=== PATIENT | male | born 1945 | race Caucasian/White ===

== ENCOUNTER → 2018-11-08 07:10 | Outpatient (CLI) | payer SELFPAY ==
--- NOTE | 2018-11-08 06:22 | PET_ITS ---
EXAMINATION: FDG PET CT INDICATIONS: A 73-year-old male with reported history of colorectal carcinoma presenting for restaging examination and evaluation of pulmonary nodularity. COMPARISON EXAMINATION: None available. INDEX LESION SIZE SUV INTERPRETATION Right lower posterior hemithorax pulmonary parenchyma, right lower lobe 18.8 mm (frame 180) 4.1 Fulfills quantitative criteria for viable neoplasm Left upper pelvic mesentery (n = 3) 7.3 mm largest (frame 115) 4.3 (max) Fulfills quantitative criteria for viable neoplasm NON-INDEX LESION SIZE SUV INTERPRETATION Aorticopulmonary window 2.3 Quantitative criteria for viable neoplasm are not fulfilled Left adrenal gland 1.8 Quantitative criteria for viable neoplasm are not fulfilled TECHNIQUE: Following the intravenous administration of 16.4 mCi of F-18 deoxyglucose via the right forearm, multiplanar image acquisitions of the neck, chest, abdomen and pelvis to level of mid thigh, obtained at one hour post radiopharmaceutical administration contemporaneously interpreted with the current CT of the neck, chest, abdomen and pelvis to level of mid thigh, dated 11/08/18 via coregistration reveal: SERUM GLUCOSE LEVEL: 96 mg/dl. HEIGHT: 65 inches. WEIGHT: 136 lbs. FINDINGS: 1. A nodular focus of enhanced glucose metabolism is noted in the right lower posterolateral hemithorax pulmonary parenchyma, right lower lobe generating a calculated maximum standard uptake value of 4.1. The maximal axial diameter of the corresponding parenchymal density on review of CT of the thorax dated 11/08/18 is 18.8 mm (AP). 2. Several distinct nodular foci of increased glucose distribution are observed in the left upper pelvic mesentery corresponding to apparent soft tissue densities, presumed lymph nodes on review of CT of the pelvis dated 11/08/18. The calculated maximum standard uptake value is 4.3. The most conspicuous metabolic, morphologic abnormality on review of CT of the pelvis dated 11/08/18 is 7.3 mm. 3. Mild increased FDG concentration is noted in the region of the aorticopulmonary window rendering a calculated maximum standard uptake value of 2.3. Quantitative criteria for centrally located thoracic-viable neoplasm are not fulfilled. 4. An increase in fluorine-labeled glucose uptake is noted in the left upper abdomen, which appears contiguous to the left adrenal gland rendering a calculated maximum standard uptake value of 1.8. 5. Normal physiologic distribution of the radiopharmaceutical is apparent in the hepatic (3.1) and splenic parenchyma, both renal units, bladder and visualized intestinal tract. There is uniform distribution of the radiopharmaceutical concentration defined in the visualized cerebellar hemispheres and cerebral cortical structures.? Diffuse intestinal tract activity is noted throughout all four quadrants of the abdominal-pelvic retroperitoneum, mesentery consistent with normal physiologic distribution of the radiopharmaceutical. Prominent glucose concentration is observed in the ascending and descending thoracic, as well as abdominal aorta commensurate with activated leukocytes associated with atherosclerotic plaque formation. (Silvia et al, Clinical Nuclear Medicine 29:93, 2003). Pertinent CT findings are as follows. CHEST: There are no additional parenchymal densities-nodules defined in the right-left hemithorax demonstrating discernible increased glucose metabolism. A calcified parenchymal density noted in the right lower posteromedial lung zone is ametabolic. A subcentimeter noncalcified density defined in the left lower posteromedial lung field, left lower lobe demonstrates no evidence of discernible increased glucose avidity. Atherosclerotic calcification is defined in the thoracic aorta without evidence of dilatation, aneurysm formation. Coronary arterial calcification is observed. Bilateral axillary and mediastinal soft tissue densities are non-glucose avid. ABDOMEN AND PELVIS: Cholelithiasis is defined. Atherosclerotic calcification is defined in the abdominal aorta without evidence of dilatation, aneurysm formation. Pelvic arterial calcification is observed. Apparent postsurgical changes are noted in the left hemipelvic mesentery without evidence of facilitated FDG uptake noted at the level of the anastomotic site. Subcentimeter bilateral inguinal soft tissue densities demonstrate no evidence of increased glucose metabolism. SKELETAL: Degenerative changes defined in the cervical, thoracic and lumbar spine demonstrate no evidence for glucose hypermetabolism. PET/PET/CT Tumor Base -Thigh Init IMPRESSION: 1. ABNORMAL EXAMINATION INDICATIVE OF MALIGNANT-VIABLE NEOPLASM. 2. Increased glucose concentration observed in the right lower posterior lung field, right lower lobe fulfills quantitative criteria for viable neoplasm. Histopathologic analysis is recommended. (Martin et al, Annals of Internal Medicine, 138:724, 2003). 3. Three separate nodular foci of facilitated FDG uptake noted in the left upper pelvic mesentery fulfill quantitative criteria for viable neoplasm. 4. The aorticopulmonary window increase in glucose concentration does not fulfill quantitative criteria for viable neoplasm. (Shelly et al, Journal of Clinical Oncology 16:2142, 1998). 5. Asymmetric increased glucose concentration observed in the left adrenal gland does not fulfill quantitative criteria for viable neoplasm. (Cristobal and Steven, Journal of Nuclear Medicine 42:151 P 2002. Juan, Journal of Nuclear Medicine 45:1340, 2004). Electronic Signature Shane Roca D.O. Electronically Signed: Shane Roca DO at 23:39 EST Tel , Service support ,
== END ==
PROVIDERS: Referring Provider Nurse Practitioner; Visit Provider Nurse Practitioner
DX: R91.1 Solitary pulmonary nodule (principal)
CPT/HCPCS: 78815; A9552